=== PATIENT | female | born 1980 | race Caucasian/White ===

== ENCOUNTER 2016-12-06 16:10 | Emergency (ER) | payer MEDICARE ==
[~2016-12-06 16:10] MED LIST: ALBUTEROL17 GM INH; BENTYL20 MG PO; BENZONATATE PO; CELEXA10 MG PO; CELEXA20 MG PO; CIPRO PO; COMBIGAN EYE DRO5 ML OP; COMBIVENT MININEB; COMBIVENT14.7 GM INH; OMEPRAZOLE20 M2 PO; PHENERGAN25 M1 PO; PREDNISONE50 MG PO; PRILOSEC20 M1 PO; QVAR7.3 GM INH; SINGULAIR PO; SYSTANE ULTRA 010 ML OP; TYLENOL #3 PO; VITAMIN D2000 UNIT PO; ZITHROMAX PO; [UNRECOGNIZED DRUG - OTHER] IH
[2016-12-06 17:42] LABS: URINE APPEARANCE CLEAR; URINE BILIRUBIN NEG (NEG); URINE BLOOD NEG (NEG); URINE COLOR YELLOW; URINE GLUCOSE NEG (NORM); URINE KETONE NEG (NEG); URINE LEUKOCYTE ESTERASE NEG (NEG); URINE NITRATE NEG (NEG); URINE PROTEIN NEG (NEG); URINE SPECIFIC GRAVITY <=1.005 (1.003-1.035); URINE UROBILINOGEN 0.2 MG/DL (NORM)
[2016-12-06 17:43] LABS: MICRO INDICATED? NO; URINE SOURCE CLEAN CATCH
== END 2016-12-06 18:10 | disposition home or self-care (01) ==
LOC: SED 16:10
PROVIDERS: Physician Assistant
DX: R30.0 Dysuria (principal); M54.5 Low back pain; M54.6 Pain in thoracic spine; F17.210 Nicotine dependence, cigarettes, uncomplicated; J45.909 Unspecified asthma, uncomplicated; F41.9 Anxiety disorder, unspecified; F32.9 Major depressive disorder, single episode, unspecified; K21.9 Gastro-esophageal reflux disease without esophagitis; Z90.710 Acquired absence of both cervix and uterus; Z98.890 Other specified postprocedural states; Z88.8 Allergy status to other drugs, medicaments and biological substances; Z79.899 Other long term (current) drug therapy
CPT/HCPCS: 81003; 99283